=== PATIENT | female | born 1995 | race Caucasian/White ===

== ENCOUNTER 2017-04-02 16:48 | Inpatient (IN) | payer MEDICAID, OTHER ==
[~2017-04-02] VITALS: Ht 162.6 cm; Wt 69.9 kg
[2017-04-02 17:17] LABS: BASOPHILS # (AUTO) 0.03 K/uL (0.00-0.20); BASOPHILS % (AUTO) 0.3 % (0.0-2.0); EOSINOPHILS # (AUTO) 0.07 K/uL (0.00-0.70); EOSINOPHILS % (AUTO) 0.88 % (1.0-6.0); HEMATOCRIT 39.2 % (36-46); LYMPHOCYTES % (AUTO) 23.6 % (22.0-44.0); MEAN CORPUSCULAR HEMOGLOBIN 30.6 pg (26.0-34.0); MEAN CORPUSCULAR VOLUME 93 fL (80-100); MONOCYTES # (AUTO) 0.8 K/uL (0.1-1.0); MONOCYTES % (AUTO) 8.9 % (2.0-9.0); NEUTROPHILS # (AUTO) 5.6 K/uL (1.8-7.7); NEUTROPHILS % (AUTO) 66.3 % (40.0-70.0); PLATELET COUNT (AUTO) 239 K/uL (150-450); RED BLOOD CELL COUNT(AUTO) 4.24 MIL/uL (4.00-5.20); RED CELL DISTRIBUTION WIDTH 13.9 % (11.5-14.5); WHITE BLOOD COUNT (AUTO) 8.5 K/uL (4.5-11.0)
[2017-04-02 17:22] LABS: ANION GAP 9 mmol/L (8-16); CALCIUM, TOTAL 9.1 mg/dL (8.8-10.5); CARBON DIOXIDE 26 mmol/L (22-29); CHLORIDE 103 mmol/L (98-107); CREATININE 0.68 mg/dL (0.60-1.30); GLOMERULAR FILTR. RATE CALC > 60 mL/min (>60); POTASSIUM 3.9 mmol/L (3.5-5.1); SODIUM SERUM 138 mmol/L (136-145); UREA NITROGEN, BLOOD 22 mg/dL (7-18)
[2017-04-02 17:28] LABS: ALANINE AMINOTRANSFERASE 28 U/L (12-78); ALBUMIN 4.1 g/dL (3.4-5.0); ASPARTATE AMINOTRANSFERASE 25 U/L (15-37); BILIRUBIN,TOTAL 0.3 mg/dL (0.1-1.0); TOTAL PROTEIN, SERUM 7.2 g/dL (6.4-8.2)
[2017-04-02] MEDS ORDERED: HALOPERIDOL 5 MG TABLET PO PRN (19:15)
[2017-04-02] MEDS ORDERED: LORazepam 2 MG TABLET PO PRN (19:15)
[2017-04-02 20:04] LABS: APPEARANCE,URINE CLEAR (CLEAR); GLUCOSE, URINE (UA) NEGATIVE (NEGATIVE); KETONES,URINE NEGATIVE (NEGATIVE); LEUKOCYTE ESTERASE ,URINE NEGATIVE (NEGATIVE); OCCULT BLOOD,URINE NEGATIVE (NEGATIVE); PROTEIN,URINE NEGATIVE (NEGATIVE)
[2017-04-02 20:08] LABS: ADD UA MICROSCOPIC NO
[2017-04-02] MEDS ORDERED: INFLUENZA VIRUS VACCINE QVS 2017-18 (3YR+)/PF 60 MCG/0.5 ML SYRINGE IM ONE (21:30)
[2017-04-02 21:42] VITALS: BP 141/84
[2017-04-03 00:20] VITALS: BP 115/70
[2017-04-03] MEDS: ZOLPIDEM TARTRATE 10 MG TABLET PO PRN ×2 (00:26→20:01)
[2017-04-03 08:31] VITALS: BP 111/64
[2017-04-03 16:42] VITALS: BP 125/88
[2017-04-04] MEDS ORDERED: ACETAMINOPHEN 325 MG TABLET PO PRN (05:30)
[2017-04-04] MEDS ORDERED: IBUPROFEN 400 MG TABLET PO PRN (05:30)
[2017-04-04 05:31] VITALS: BP 110/60
[2017-04-04] MEDS: ARIPiprazole 10 MG TABLET PO SCH ×2 (08:20→09:00)
[2017-04-04 08:49] VITALS: BP 123/77
[2017-04-04] MEDS ORDERED: SERTRALINE HCL 50 MG TABLET PO SCH (09:00)
[2017-04-04 09:05] LABS: CHOL/HDL RATIO 2.4 (3.9-5.7); THYROID STIMULATING HORMONE 1.16 uIU/mL (0.36-3.74)
[2017-04-04 16:09] VITALS: BP 123/74
[2017-04-04] MEDS: ZOLPIDEM TARTRATE 10 MG TABLET PO PRN (20:44)
[2017-04-05 02:06] VITALS: BP 119/65
[2017-04-05 08:45] VITALS: BP 108/78
[2017-04-05] MEDS: SERTRALINE HCL 50 MG TABLET PO SCH (08:59)
[2017-04-05 16:25] VITALS: BP 121/65
[2017-04-05] MEDS: ZOLPIDEM TARTRATE 10 MG TABLET PO PRN (21:03)
[2017-04-06 00:40] VITALS: BP 121/65
[2017-04-06] MEDS: SERTRALINE HCL 50 MG TABLET PO SCH (08:18)
[2017-04-06 08:43] VITALS: BP 124/92
[2017-04-06 16:12] VITALS: BP 124/78
[2017-04-06] MEDS: ZOLPIDEM TARTRATE 10 MG TABLET PO PRN (21:46)
[2017-04-07 06:02] VITALS: BP 120/64
[2017-04-07] MEDS: SERTRALINE HCL 50 MG TABLET PO SCH (08:32)
[2017-04-07 08:33] VITALS: BP 100/60
[2017-04-07] MEDS ORDERED: SERT100T12 PO (09:36)
== END 2017-04-07 12:35 | disposition home or self-care (01) | DRG 750 ==
LOC: EMS 16:50 → B2S 19:42
PROVIDERS: ADMIT Psychiatry & Neurology Psychiatry; ATTEND Psychiatry & Neurology Psychiatry
DX: F25.0 Schizoaffective disorder, bipolar type (principal); R45.851 Suicidal ideations; F41.9 Anxiety disorder, unspecified; G47.00 Insomnia, unspecified; F15.10 Other stimulant abuse, uncomplicated; F12.10 Cannabis abuse, uncomplicated
CPT/HCPCS: 84439; 84443; 99285; G0480

== ENCOUNTER 2019-07-19 08:49 | Inpatient (IN) | payer MEDICAID, OTHER ==
[~2019-07-19] VITALS: Ht 160 cm; Wt 70.5 kg
[~2019-07-19 08:49] MED LIST: ARIP10TA8 PO; FERR325T22 PO; SERT100T12 PO
[2019-07-19 10:02] LABS: BASOPHILS % (AUTO) 0.3 % (0.0-2.0); EOSINOPHILS % (AUTO) 0.3 % (1.0-6.0); HEMOGLOBIN 11.4 g/dL (12.0-16.0); LYMPHOCYTES # (AUTO) 1.7 K/uL (1.0-4.8); LYMPHOCYTES % (AUTO) 14.4 % (22.0-44.0); MEAN CORPUSCULAR HEMOGLOBIN 27.1 pg (26.0-34.0); MEAN CORPUSCULAR HGB CONC 31.5 G/dL (31.0-37.0); MEAN CORPUSCULAR VOLUME 86 fL (80-100); MONOCYTES # (AUTO) 0.7 K/uL (0.1-1.0); NEUTROPHILS # (AUTO) 9.2 K/uL (1.8-7.7); PLATELET COUNT (AUTO) 248 K/uL (150-450); RED BLOOD CELL COUNT(AUTO) 4.19 MIL/uL (4.00-5.20); RED CELL DISTRIBUTION WIDTH 16.2 % (11.5-14.5)
[2019-07-19 10:12] LABS: ANION GAP 5 mmol/L (8-16); CALCIUM, TOTAL 8.6 mg/dL (8.8-10.5); CARBON DIOXIDE 28 mmol/L (22-29); CHLORIDE 106 mmol/L (98-107); GLOMERULAR FILTR. RATE CALC > 60 mL/min (>60); GLUCOSE,RANDOM 90 mg/dL (70-110); POTASSIUM 4.5 mmol/L (3.5-5.1); SODIUM SERUM 139 mmol/L (136-145); UREA NITROGEN, BLOOD 15 mg/dL (7-18)
[2019-07-19 10:19] LABS: ALANINE AMINOTRANSFERASE 22 U/L (12-78); ALBUMIN 3.9 g/dL (3.4-5.0); ALKALINE PHOSPHATASE 63 U/L (46-116); ASPARTATE AMINOTRANSFERASE 12 U/L (15-37); BILIRUBIN,TOTAL 0.1 mg/dL (0.1-1.0); TOTAL PROTEIN, SERUM 6.4 g/dL (6.4-8.2)
[2019-07-19 10:38] LABS: AMPHET/METH SCREEN,URINE NEGATIVE (NEGATIVE); BARBITURATE SCREEN, URINE NEGATIVE (NEGATIVE); BENZODIAZEPINES SCREEN,URINE NEGATIVE (NEGATIVE); CANNABINOID SCREEN,URINE POSITIVE (NEGATIVE); COCAINE SCREEN,URINE NEGATIVE (NEGATIVE); METHADONE SCREEN, URINE NEGATIVE (NEGATIVE); OPIATE SCREEN,URINE NEGATIVE (NEGATIVE)
[2019-07-19 10:39] LABS: PHENCYCLIDINE SCREEN,URINE NEGATIVE (NEGATIVE)
[2019-07-19] MEDS ORDERED: ZOLPIDEM TARTRATE 10 MG TABLET PO PRN (12:00)
[2019-07-19] MEDS ORDERED: HALOPERIDOL 5 MG TABLET PO PRN (12:00)
[2019-07-19] MEDS ORDERED: LORazepam 2 MG TABLET PO PRN (12:00)
[2019-07-19 12:48] LABS: BILIRUBIN,URINE NEGATIVE (NEGATIVE); GLUCOSE, URINE (UA) NEGATIVE (NEGATIVE); KETONES,URINE NEGATIVE (NEGATIVE); NITRATE,URINE NEGATIVE (NEGATIVE); OCCULT BLOOD,URINE NEGATIVE (NEGATIVE); PH,URINE 7.5 (5.0-8.0); PROTEIN,URINE NEGATIVE (NEGATIVE); UROBILINOGEN,URINE 0.2 mg/dL (<=1.0)
[2019-07-19 13:15] LABS: APPEARANCE,URINE CLEAR (CLEAR)
[2019-07-19 13:16] LABS: BACTERIA,URINE None Seen /HPF (None Seen); LEUKOCYTE ESTERASE ,URINE TRACE (NEGATIVE); RBC,URINE None Seen /HPF (0-2); SQUAMOUS EPITHELIAL CELL,UR Few /LPF (None Seen); WBC,URINE 0-2 /HPF (0-5)
[2019-07-19] MEDS ORDERED: SERTRALINE HCL 50 MG TABLET PO SCH (16:09)
[2019-07-19] MEDS ORDERED: ARIPiprazole 15 MG TABLET PO SCH (16:09)
[2019-07-19 16:14] VITALS: BP 114/65
[2019-07-19] MEDS: ARIPiprazole 15 MG TABLET PO SCH (17:04)
[2019-07-19] MEDS: SERTRALINE HCL 50 MG TABLET PO SCH (17:04)
[2019-07-19] MEDS ORDERED: MAG HYDROX/AL HYDROX/SIMETH ES 30 ML SUSPENSION UDCUP PO PRN (20:45)
[2019-07-19] MEDS ORDERED: IBUPROFEN 400 MG TABLET PO PRN (20:45)
[2019-07-19] MEDS ORDERED: ALBUTEROL SULFATE HFA 90 MCG/PUFF 8 GM INHALER IH PRN (20:45)
[2019-07-19] MEDS ORDERED: MAGNESIUM HYDROXIDE SUSPENSION 30 ML UDCUP PO PRN (20:45)
[2019-07-19] MEDS ORDERED: GuaiFENesin/D-METHORPHAN [SUGAR-FREE] 200-20MG/10 ML SYRUP UDCUP PO PRN (20:45)
[2019-07-19] MEDS ORDERED: CloNIDine HCL 0.1 MG TABLET PO PRN (20:45)
[2019-07-19] MEDS ORDERED: DOCUSATE SODIUM 100 MG CAPSULE PO PRN (20:45)
[2019-07-19] MEDS ORDERED: NICOTINE 14 MG/24 HOUR PATCH TD PRN (20:45)
[2019-07-19] MEDS ORDERED: ACETAMINOPHEN 325 MG TABLET PO PRN (20:45)
[2019-07-19] MEDS ORDERED: PETROLATUM,WHITE 28 GM JELLY TP PRN (20:45)
[2019-07-19] MEDS ORDERED: LOPERAMIDE HCL 2 MG CAPSULE PO PRN (20:45)
[2019-07-19] MEDS ORDERED: ONDANSETRON HCL 4 MG TABLET PO PRN (20:45)
[2019-07-20 01:33] VITALS: BP 100/76
[2019-07-20 08:23] LABS: CHOL/HDL RATIO 2.6 (3.9-5.7); CHOLESTEROL 148 mg/dL (131-200); FREE T4 (FREE THYROXINE) 0.81 ng/dL (0.76-1.46); HCG,QUANTITATIVE < 1 mIU/mL (0-6); HDL CHOLESTEROL 57 mg/dL (40-60); LDL CHOL (CALC.) 76 mg/dL (0-130); THYROID STIMULATING HORMONE 0.71 uIU/mL (0.36-3.74); TRIGLYCERIDES 76 mg/dL (15-150)
[2019-07-20 08:39] VITALS: BP 156/81
[2019-07-20] MEDS: SERTRALINE HCL 50 MG TABLET PO SCH (09:08)
[2019-07-20] MEDS: ARIPiprazole 15 MG TABLET PO SCH (09:08)
[2019-07-20 14:36] VITALS: BP 122/65
[2019-07-20 16:11] VITALS: BP 130/70
[2019-07-20] MEDS ORDERED: DOCUSATE SODIUM 100 MG CAPSULE PO PRN (19:45)
[2019-07-20] MEDS ORDERED: IBUPROFEN 400 MG TABLET PO PRN (19:45)
[2019-07-20] MEDS ORDERED: MAG HYDROX/AL HYDROX/SIMETH ES 30 ML SUSPENSION UDCUP PO PRN (19:45)
[2019-07-20] MEDS ORDERED: ONDANSETRON HCL 4 MG TABLET PO PRN (19:45)
[2019-07-20] MEDS ORDERED: GuaiFENesin/D-METHORPHAN [SUGAR-FREE] 200-20MG/10 ML SYRUP UDCUP PO PRN (19:45)
[2019-07-20] MEDS ORDERED: ALBUTEROL SULFATE HFA 90 MCG/PUFF 8 GM INHALER IH PRN (19:45)
[2019-07-20] MEDS ORDERED: LOPERAMIDE HCL 2 MG CAPSULE PO PRN (19:45)
[2019-07-20] MEDS ORDERED: CloNIDine HCL 0.1 MG TABLET PO PRN (19:45)
[2019-07-20] MEDS ORDERED: ACETAMINOPHEN 325 MG TABLET PO PRN (19:45)
[2019-07-20] MEDS ORDERED: MAGNESIUM HYDROXIDE SUSPENSION 30 ML UDCUP PO PRN (19:45)
[2019-07-20] MEDS ORDERED: PETROLATUM,WHITE 28 GM JELLY TP PRN (19:45)
[2019-07-20] MEDS ORDERED: NICOTINE 14 MG/24 HOUR PATCH TD PRN (19:45)
[2019-07-21 04:31] VITALS: BP 124/68
[2019-07-21 08:27] VITALS: BP 124/61
[2019-07-21] MEDS: ARIPiprazole 15 MG TABLET PO SCH (09:08)
[2019-07-21] MEDS: SERTRALINE HCL 50 MG TABLET PO SCH (09:08)
[2019-07-21 16:01] VITALS: BP 123/72
[2019-07-22 06:39] VITALS: BP 126/66
[2019-07-22] MEDS: SERTRALINE HCL 50 MG TABLET PO SCH (08:10)
[2019-07-22] MEDS: ARIPiprazole 15 MG TABLET PO SCH (08:10)
[2019-07-22 08:16] VITALS: BP 121/60
[2019-07-22] MEDS ORDERED: SERT50TA12 PO (08:59)
[2019-07-22] MEDS ORDERED: ARIP15TA2 PO (08:59)
== END 2019-07-22 09:57 | disposition home or self-care (01) | DRG 750 ==
LOC: EMS 08:50 → B3A 11:54
PROVIDERS: ADMIT Psychiatry & Neurology Child & Adolescent Psychiatry; ATTEND Psychiatry & Neurology Child & Adolescent Psychiatry
DX: F25.1 Schizoaffective disorder, depressive type (principal); R45.851 Suicidal ideations; D72.829 Elevated white blood cell count, unspecified; F12.10 Cannabis abuse, uncomplicated; Z79.899 Other long term (current) drug therapy; D64.9 Anemia, unspecified; F10.10 Alcohol abuse, uncomplicated; F41.9 Anxiety disorder, unspecified
CPT/HCPCS: 84439; 84443; G0480